=== PATIENT | female | born 1955 | race Caucasian/White ===

== ENCOUNTER → 2021-03-20 | Outpatient (CLI) | payer MEDICARE, OTHER | LOC: CT 07:22 | DX: R10.32 Left lower quadrant pain (principal); R19.7 Diarrhea, unspecified; I10 Essential (primary) hypertension; E11.9 Type 2 diabetes mellitus without complications; N20.0 Calculus of kidney | CPT/HCPCS: 36415; 82565; 84520; 87449; Q9967 ==

== ENCOUNTER → 2021-07-05 | Outpatient (CLI) | payer MEDICARE, OTHER | LOC: CT 12:06 | DX: R31.9 Hematuria, unspecified (principal); K76.0 Fatty (change of) liver, not elsewhere classified; K57.90 Diverticulosis of intestine, part unspecified, without perforation or abscess without bleeding | CPT/HCPCS: 36415; 82565; 84520; Q9967 ==

== ENCOUNTER → 2021-10-01 | Outpatient (CLI) | payer MEDICARE, OTHER | LOC: RAD 10:33 | DX: N20.0 Calculus of kidney (principal) | CPT/HCPCS: 74018 ==